=== PATIENT | female | born 1995 | race Two or more races ===

== ENCOUNTER 2023-06-19 11:45 | Outpatient (CLI) | payer OTHER | END 2023-06-19 12:00 | disposition home or self-care (01) | LOC: PPH VACUNA 11:45 | PROVIDERS: ATTEND Emergency Medicine Pediatric Emergency Medicine | DX: Z23 Encounter for immunization (principal) ==

== ENCOUNTER 2024-05-14 16:48 | Emergency (ER) | payer OTHER ==
[~2024-05-14] VITALS: Ht 157.5 cm; Wt 92.5 kg
[2024-05-14] MEDS ORDERED: CETIRIZINE HCL 5 MG/5 ML ML PO STA (17:24)
[2024-05-14] MEDS ORDERED: METHYLPREDNISOLONE SOD SUCC 40 MG VIAL IV STA (17:25)
[2024-05-14] MEDS ORDERED: CETIRIZINE HCL 5MG/5ML BLIST.PACK PO ONE (17:30)
[2024-05-14] MEDS ORDERED: METHYLPREDNISOLONE SOD SUCC 125 MG VIAL ONE (17:31)
[2024-05-14 17:45] LABS: HEMOGLOBIN 11.4 g/dL (12.0-15.00); MEAN CELL VOLUME 74.2 fL (80.00-100.00); MEAN CORPUSCULAR HEMOGLOBIN 24.9 pg (27.00-32.0); MEAN CORPUSCULAR HGB CONC 33.6 g/dl (32.0-36.0); PLATELET COUNT 222 K/uL (150-450); RED BLOOD COUNT 4.59 M/uL (4.00-6.00); RED CELL DISTRIBUTION WIDTH 15.5 % (11.5-14.5)
[2024-05-14] MEDS ORDERED: SINGULAIR10 MG PO (18:52)
[2024-05-14] MEDS ORDERED: DEXAMETHASONE4 MG PO (18:52)
[2024-05-14] MEDS ORDERED: ZYRTEC10 MG PO (18:52)
[2024-05-14] MEDS ORDERED: MUCINEX DM ER1 EACH PO (18:52)
== END 2024-05-14 19:18 | disposition home or self-care (01) ==
LOC: ER 16:49
PROVIDERS: General Practice
DX: J06.9 Acute upper respiratory infection, unspecified (principal); Z20.822 Contact with and (suspected) exposure to COVID-19

== ENCOUNTER 2024-07-09 11:23 | Emergency (ER) | payer OTHER ==
[~2024-07-09] VITALS: Ht 157.5 cm; Wt 93.0 kg
[~2024-07-09 11:23] MED LIST: DEXAMETHASONE4 MG PO; MUCINEX DM ER1 EACH PO; SINGULAIR10 MG PO; ZYRTEC10 MG PO
[2024-07-09] MEDS ORDERED: CEFTRIAXONE SODIUM 1,000 MG VIAL IM STA (13:13)
[2024-07-09] MEDS ORDERED: KETOROLAC TROMETHAMINE 30 MG VIAL IM STA (13:14)
== END 2024-07-09 13:30 | disposition home or self-care (01) ==
LOC: ER 11:25
DX: J03.90 Acute tonsillitis, unspecified (principal)

== ENCOUNTER 2024-07-19 03:38 | Outpatient (CLI) | payer OTHER | END 2024-07-19 04:00 | disposition home or self-care (01) | LOC: PPH VACUNA 03:38 | PROVIDERS: ATTEND Emergency Medicine Pediatric Emergency Medicine | DX: Z23 Encounter for immunization (principal) ==

== ENCOUNTER 2024-08-31 21:26 | Emergency (ER) | payer OTHER ==
[~2024-08-31] VITALS: Ht 157.5 cm; Wt 93.0 kg
[2024-08-31] MEDS ORDERED: FAMOTIDINE/PF 20 MG in 0.9 % SODIUM CHLORIDE 8 ML IV PUSH STA (21:43)
[2024-08-31] MEDS ORDERED: ONDANSETRON HCL 2 MG/ML VIAL IV ONE (21:45)
[2024-08-31] MEDS ORDERED: 0.9 % SODIUM CHLORIDE 1,000 ML IV SCH (21:45)
[2024-08-31 22:01] LABS: HEMATOCRIT 37.7 % (36.0-45.00); HEMOGLOBIN 11.9 g/dL (12.0-15.00); MEAN CORPUSCULAR HEMOGLOBIN 24.1 pg (27.00-32.0); MEAN CORPUSCULAR HGB CONC 31.7 g/dl (32.0-36.0); PLATELET COUNT 265 K/uL (150-450); RED BLOOD COUNT 4.96 M/uL (4.00-6.00); RED CELL DISTRIBUTION WIDTH 15.9 % (11.5-14.5)
[2024-08-31 22:18] LABS: ALBUMIN 3.9 gm/dL (3.4-5.0); BILIRUBIN TOTAL 0.34 mg/dL (0.3-1.2); CREATININE SERUM 0.71 mg/dL (0.55-1.02); GFR 97.32; GLOBULINA 4.5 G/DL (2.4-3.5); POTASSIUM 3.74 mEq/L (3.5-5.1); TOTAL PROTEIN 8.4 gm/dL (6.4-8.2)
[2024-08-31] MEDS ORDERED: PEPCID AC20 MG PO (23:22)
[2024-08-31] MEDS ORDERED: ZOFRAN8 MG PO (23:22)
== END 2024-09-01 00:09 | disposition home or self-care (01) ==
LOC: ER 21:28
PROVIDERS: General Practice
DX: R11.2 Nausea with vomiting, unspecified (principal); K52.9 Noninfective gastroenteritis and colitis, unspecified; R10.9 Unspecified abdominal pain

== ENCOUNTER 2024-12-03 09:34 | Emergency (ER) | payer OTHER ==
[~2024-12-03] VITALS: Ht 157.5 cm; Wt 93.0 kg
[~2024-12-03 09:34] MED LIST changes: +PEPCID AC20 MG PO; +ZOFRAN8 MG PO
[2024-12-03] MEDS ORDERED: FAMOtidine 10 MG/ML (4ML VIAL) IV ONE (10:00)
[2024-12-03] MEDS ORDERED: CEFTRIAXONE SODIUM 1,000 MG VIAL IV ONE (10:00)
[2024-12-03] MEDS ORDERED: TAMSULOSIN HCL 0.4 MG CAP PO ONE ×2 (10:15→10:23)
[2024-12-03] MEDS ORDERED: KETOROLAC TROMETHAMINE 30 MG VIAL IU ONE (10:15)
[2024-12-03] MEDS ORDERED: CEFTRIAXONE SODIUM 1,000 MG VIAL ONE (10:23)
[2024-12-03] MEDS ORDERED: FAMOTIDINE/PF 20 MG/2 ML VIAL ONE (10:23)
[2024-12-03] MEDS ORDERED: KETOROLAC TROMETHAMINE 30 MG VIAL ONE (10:23)
[2024-12-03] MEDS ORDERED: ONDANSETRON HCL 2 MG/ML VIAL ONE (10:36)
[2024-12-03] MEDS ORDERED: ONDANSETRON HCL 2 MG/ML VIAL IV ONE (10:45)
[2024-12-03 11:06] LABS: HEMATOCRIT 35.9 % (36.0-45.00); HEMOGLOBIN 11.5 g/dL (12.0-15.00); MEAN CELL VOLUME 75.3 fL (80.00-100.00); MEAN CORPUSCULAR HEMOGLOBIN 24.1 pg (27.00-32.0); PLATELET COUNT 241 K/uL (150-450); RED BLOOD COUNT 4.77 M/uL (4.00-6.00); RED CELL DISTRIBUTION WIDTH 15.6 % (11.5-14.5)
[2024-12-03 11:20] LABS: INR 1.04; PARTIAL THROMBOPLASTIN TIME 27.4 SECONDS (22.0-34.0); PROTHROMBIN TIME 11.3 SECONDS (9.0-11.5)
[2024-12-03 11:22] LABS: ALBUMIN 3.4 gm/dL (3.4-5.0); BILIRUBIN TOTAL 0.28 mg/dL (0.3-1.2); CALCIUM 9.2 mg/dL (8.5-10.1); CREATININE SERUM 0.64 mg/dL (0.55-1.02); GFR 109.71; GLOBULINA 4.5 G/DL (2.4-3.5); POTASSIUM 3.81 mEq/L (3.5-5.1); TOTAL PROTEIN 7.9 gm/dL (6.4-8.2)
[2024-12-03 12:55] LABS: PH,URINE 6.5 (5.0-8.0); URINE APPEARANCE Clear; URINE BILIRRUBIN Negative (NEGATIVE); URINE BLOOD Large; URINE COLOR Orange; URINE GLUCOSE Negative (NEGATIVE); URINE KETONE Negative (NEGATIVE); URINE LEUKOCYTE Small; URINE NITRATE Negative; URINE PROTEIN 30 (NEGATIVE); URINE UROBILINOGEN 0.2 E.U./dl
[2024-12-03 13:20] LABS: URINE BACTERIA 1458.9 uL (0.0-1933); URINE EPITHELIAL CELLS 41.1 uL (0.0-38.8); URINE RBC 199.2 uL (0.0-20.8); URINE WBC 67.5 uL (0.0-23.2)
[2024-12-03] MEDS ORDERED: BACTRIM DS TAB1 EACH PO (13:22)
[2024-12-03] MEDS ORDERED: ZOFRAN8 MG PO (13:22)
[2024-12-03] MEDS ORDERED: TAMS0.4C PO (13:22)
[2024-12-03] MEDS ORDERED: PEPCID AC20 MG PO (13:22)
[2024-12-03] MEDS ORDERED: KETO10TA2 PO (13:22)
== END 2024-12-03 13:37 | disposition home or self-care (01) ==
LOC: ER 09:37
PROVIDERS: General Practice
DX: R10.9 Unspecified abdominal pain (principal); N20.0 Calculus of kidney

== ENCOUNTER → 2025-01-16 09:55 | Outpatient (CLI) | payer OTHER ==
[~2025-01-16 09:55] MED LIST changes: +BACTRIM DS TAB1 EACH PO; +KETO10TA2 PO; +TAMS0.4C PO
[2025-01-16 11:01] LABS: HEMATOCRIT 35.2 % (36.0-45.00); HEMOGLOBIN 11.4 g/dL (12.0-15.00); MEAN CELL VOLUME 74.3 fL (80.00-100.00); MEAN CORPUSCULAR HEMOGLOBIN 24.1 pg (27.00-32.0); MEAN CORPUSCULAR HGB CONC 32.4 g/dl (32.0-36.0); PLATELET COUNT 255 K/uL (150-450); RED BLOOD COUNT 4.74 M/uL (4.00-6.00); RED CELL DISTRIBUTION WIDTH 15.8 % (11.5-14.5)
[2025-01-16 11:08] LABS: URINE APPEARANCE Clear; URINE BILIRRUBIN Negative (NEGATIVE); URINE BLOOD Negative; URINE COLOR Yellow; URINE GLUCOSE Negative (NEGATIVE); URINE KETONE Negative (NEGATIVE); URINE LEUKOCYTE Moderate; URINE NITRATE Negative; URINE PROTEIN Negative (NEGATIVE); URINE UROBILINOGEN 0.2 E.U./dl
[2025-01-16 11:12] LABS: URINE BACTERIA 1371.9 uL (0.0-1933); URINE EPITHELIAL CELLS 53.3 uL (0.0-38.8); URINE RBC 12.9 uL (0.0-20.8); URINE WBC 84.3 uL (0.0-23.2)
[2025-01-16 11:23] LABS: URINE CRYSTALS FEW /HPF
[2025-01-16 11:39] LABS: ALBUMIN 3.7 gm/dL (3.4-5.0); BILIRUBIN TOTAL 0.27 mg/dL (0.3-1.2); CALCIUM 8.9 mg/dL (8.5-10.1); CHOL HDL RATIO 3.1 (0-5.0); CREATININE SERUM 0.51 mg/dL (0.55-1.02); GFR 142.57; GLOBULINA 4.1 G/DL (2.4-3.5); POTASSIUM 4.15 mEq/L (3.5-5.1); T4 TOTAL 8.02 UG/DL (4.8-13.9); TOTAL PROTEIN 7.8 gm/dL (6.4-8.2); TSH 1.61 uIU/mL (0.358-3.74)
[2025-01-16 13:02] LABS: T3 TOTAL 1.22 ng/ml (0.846-2.02); VITAMIN D3 25 HYDROXY 16.01 ng/ml (30-120)
[2025-01-17 07:06] LABS: hav igm Negative (Negative); hcv Non Reactive (Non Reactive); hep b c Negative (Negative); hep b s ag Negative (Negative)
== END | disposition home or self-care (01) ==
LOC: LAB 09:55
PROVIDERS: ATTEND Internal Medicine Cardiovascular Disease
DX: E78.9 Disorder of lipoprotein metabolism, unspecified (principal); E78.1 Pure hyperglyceridemia; E11.9 Type 2 diabetes mellitus without complications; E03.8 Other specified hypothyroidism; B20 Human immunodeficiency virus [HIV] disease; A64 Unspecified sexually transmitted disease; I10 Essential (primary) hypertension; E55.9 Vitamin D deficiency, unspecified; N39.0 Urinary tract infection, site not specified; B15.0 Hepatitis A with hepatic coma; B19.0 Unspecified viral hepatitis with hepatic coma

== ENCOUNTER 2025-01-18 11:02 | Outpatient (CLI) | payer OTHER | END 2025-01-18 11:04 | disposition home or self-care (01) | LOC: RAD 11:02 | PROVIDERS: ATTEND Internal Medicine Cardiovascular Disease | DX: I10 Essential (primary) hypertension (principal) ==